=== PATIENT | male | born 1950 | race Caucasian/White ===

== ENCOUNTER → 2020-01-02 09:14 | Outpatient (CLI) | payer MEDICARE, SELFPAY ==
--- NOTE | ~2020-01-02 | MR_ITS ---
EXAMINATION: MR cervical spine wo con DATE: 01/02/2020 10:09 INDICATION: Cervical spinal fusion. Neck discomfort. Bilateral hand tingling. TECHNIQUE: Magnetic resonance imaging (MRI) of the cervical spine was performed without intravenous c ontrast. Sequences included sagittal T2-weighted FSE, sagittal STIR FSE, sagittal T1-weighted FSE, ax ial MERGE, and axial T2-weighted FSE. COMPARISON: Cervical spine MRI 10/12/2015 FINDINGS: Bone alignment is normal. Vertebral body heights are normal. There are changes of anterior fusion procedure from C4 to C6 with interbody devices and anterior plate and screws. There is mildly decreased disc height at C3-C4 and moderately decreased disc height at C6-C7. The spinal cord signal intensity is normal. The following disc levels are specifically discussed: C2-C3: The disc does not extend beyond the endplate margin. There is no uncovertebral joint osteoarth ritis. There is mild right and severe left facet joint osteoarthritis. There is mild left neural fora rg stenosis. There is no central canal stenosis. C3-C4: The disc is bulging. There is mild right and moderate left uncovertebral joint osteoarthritis. There is mild bilateral facet joint osteoarthritis. There is mild bilateral neural foraminal stenosi s. There is mild central canal stenosis. C4-C5: There is mild bilateral uncovertebral joint hypertrophy. There is no facet joint osteoarthriti s. There is mild bilateral neural foraminal stenosis. There is mild central canal stenosis. C5-C6: There is moderate bilateral uncovertebral joint hypertrophy. There is mild bilateral facet constance nt osteoarthritis. There is mild right and moderate left neural foraminal stenosis. There is no centr al canal stenosis. C6-C7: The disc is bulging. There is moderate right and severe left uncovertebral joint osteoarthriti s. There is mild bilateral facet joint osteoarthritis. There is mild bilateral neural foraminal steno sis. There is mild central canal stenosis. C7-T1: There is a central protrusion. There is no uncovertebral joint osteoarthritis. There is mild b ilateral facet joint osteoarthritis. There is no neural foraminal stenosis. There is no central canal stenosis. IMPRESSION: 1. Moderate cervical spondylosis. 2. Anterior fusion procedure from C4 to C6, new from 10/12/2015. Reviewed, dictated and finalized at location A.
== END ==
PROVIDERS: Visit Provider Neurological Surgery
DX: M47.892 Other spondylosis, cervical region (principal); Z98.1 Arthrodesis status
CPT/HCPCS: 72141

== ENCOUNTER → 2020-01-15 09:00 | Outpatient (CLI) | payer MEDICARE, SELFPAY ==
--- NOTE | ~2020-01-15 | MR_ITS ---
EXAMINATION: MR lumbar spine wo con DATE: 01/15/2020 09:56 INDICATION: Neurogenic claudication due to lumbar spinal stenosis. Low back pain. TECHNIQUE: Magnetic resonance imaging (MRI) of the lumbar spine was performed without intravenous con trast. Sequences included sagittal T2-weighted FSE, sagittal T2-weighted FS FSE, sagittal T1-weighted FSE, and axial T2-weighted FSE. COMPARISON: None FINDINGS: There is 6 degrees levocurvature of lumbar spine. There is mild chronic anterior wedging of T12 and L1 vertebral bodies. There are Schmorl's nodes at T10-T11, L1-L2, L2-L3, and L3-L4. Interver tebral disc heights are normal. The distal spinal cord signal intensity is normal. The conus medullar is is at T12-L1. The following disc levels are specifically discussed: L1-L2: The disc does not extend beyond the endplate margin. There is mild bilateral facet joint osteo arthritis. There is no neural foraminal stenosis. There is no central canal stenosis. L2-L3: The disc does not extend beyond the endplate margin. There is mild bilateral facet joint osteo arthritis. There is no neural foraminal stenosis. There is no central canal stenosis. L3-L4: There is a right foraminal protrusion. There is mild bilateral facet joint osteoarthritis. The re is mild bilateral neural foraminal stenosis. There is no central canal stenosis. L4-L5: The disc is bulging. There is moderate bilateral facet joint osteoarthritis. There is moderate bilateral neural foraminal stenosis. There is mild central canal stenosis. L5-S1: The disc is bulging and has an annular fissure. There is mild bilateral facet joint osteoarthr itis. There is mild bilateral neural foraminal stenosis. There is mild central canal stenosis. IMPRESSION: 1. Moderate spondylosis at L4-L5 and mild spondylosis at other levels. Reviewed, dictated and finalized at location A.
== END | disposition home or self-care (01) ==
PROVIDERS: Visit Provider Neurological Surgery
DX: M48.062 Spinal stenosis, lumbar region with neurogenic claudication (principal); M47.896 Other spondylosis, lumbar region
CPT/HCPCS: 72148

== ENCOUNTER → 2020-05-20 12:56 | Outpatient (CLI) | payer MEDICARE, SELFPAY ==
--- NOTE | ~2020-05-20 | MR_ITS ---
EXAMINATION: MR lumbar spine wo [facility] EXAM DATE: 05/20/2020 13:57 INDICATION: Spinal stenosis chronic low back pain, left hip/leg pain x4-6 yrs, no trauma. TECHNIQUE: Multi-sequential, multiplanar MR images of the lumbar spine were obtained without contrast . Sagittal T1, T2, T2 fat saturation images. Axial T2 weighted images. Comparison is made to prior examination from 01/15/2020. FINDINGS: There is mild disc disease at all lumbar levels. The conus medullaris terminates at the L1 level and has normal signal intensity and morphology. There is 2-3 mm retrolisthesis L5 on S1. The v ertebral bodies are otherwise aligned. There are no suspicious marrow signal abnormalities. Paraspina l soft tissue is unremarkable. Level by level evaluation: T11-12: Disc does not extend beyond the endplate margin. Facet arthropathy: Moderate. Neural foraminal stenosis: No stenosis. Central canal stenosis: No stenosis. T12-L1: Disc does not extend beyond the endplate margin. Facet arthropathy: Mild to moderate. Neural foraminal stenosis: No stenosis. Central canal stenosis: No stenosis. L1-L2: There is a mild diffuse disc bulge. Facet arthropathy: Moderate. Neural foraminal stenosis: No stenosis. Central canal stenosis: No stenosis. L2-L3: There is a mild diffuse disc bulge. Facet arthropathy: Moderate. Neural foraminal stenosis: Mild bilateral. Central canal stenosis: Mild. L3-L4: There is a mild diffuse disc bulge. Facet arthropathy: Mild to moderate. Neural foraminal stenosis: Mild bilateral. Central canal stenosis: Mild. L4-L5: There is a mild to moderate diffuse disc bulge. Facet arthropathy: Severe. Neural foraminal stenosis: Moderate bilateral. Central canal stenosis: Mild to moderate. L5-S1: There is a mild diffuse disc bulge. Facet arthropathy: Mild. Neural foraminal stenosis: Mild to moderate. Central canal stenosis: No stenosis. There is no significant interval change. IMPRESSION: 1. L4-5 severe facet arthropathy, moderate bilateral neural foraminal stenosis. 2. Otherwise overall mild to moderate lumbar spondylosis. Reviewed, dictated and finalized at location A. KER MECHANIC IMPRESSION: 1. L4-5 severe facet arthropathy, moderate bilateral neural foraminal stenosis . 2. Otherwise overall mild to moderate lumbar spondylosis.
== END ==
PROVIDERS: PCP Internal Medicine; Visit Provider Neurological Surgery
DX: M48.062 Spinal stenosis, lumbar region with neurogenic claudication (principal); M47.896 Other spondylosis, lumbar region
CPT/HCPCS: 72148

== ENCOUNTER → 2020-05-20 12:58 | Outpatient (CLI) | payer MEDICARE, SELFPAY ==
--- NOTE | ~2020-05-20 | XR_ITS ---
EXAMINATION: XR hip LT min 2V DATE: 05/20/2020 14:42 INDICATION: Left hip pain. TECHNIQUE: 2 views of left hip were obtained. COMPARISON: None. FINDINGS: Bone alignment is normal. No fracture. There is mild left hip osteoarthritis. IMPRESSION: 1. Mild left hip osteoarthritis. Reviewed, dictated and finalized at location A. EL LATHE OPERATOR
== END ==
PROVIDERS: PCP Internal Medicine; Visit Provider Internal Medicine
DX: M16.12 Unilateral primary osteoarthritis, left hip (principal)
CPT/HCPCS: 73502

== ENCOUNTER → 2021-08-18 09:14 | Outpatient (CLI) | payer MEDICARE, SELFPAY ==
--- NOTE | ~2021-08-18 | CT_ITS ---
EXAMINATION: CTA neck EXAM DATE: 08/18/2021 10:19 INDICATION: Vertebrobasilar TIA, dizziness. TECHNIQUE: Spiral CTA of the carotid arteries was performed with intravenous injection 100cc of Omnip aque 350. Axial, coronal, sagittal reformatted images reviewed. Additional reformatted images creat ed on dedicated 3-D workstation. NASCET comparable standard used to assess the degree of arterial st enosis. The dose-length product (DLP) for this examination was 743.67 mGy-cm. The exposure was tail ored according to patient size (auto mA exposure control), and iterative reconstruction (ASIR) was us ed as additional dose reduction technique. Comparison is made to prior examination from 05/31/2019. FINDINGS: The vertebral arteries are codominant. There is no vertebral basilar dissection or fibromus cular dysplasia. There is 20% stenosis of the right carotid bulb and 0% stenosis of the left carotid bulb. Mild bilateral carotid siphon arterial sclerosis without stenosis. Jugular veins are patent. No cervical lymphadenopathy. Parotid, submandibular, thyroid gland is unremarkable. Lung apices unremar kable. Cervical fusion C4-6. Moderate disc disease at C6-7. Left cataract surgery. IMPRESSION: Right carotid bulb 20% stenosis, left carotid bulb 0% stenosis. Reviewed, dictated and finalized at location B. AL SERVICE WAITER
[2021-08-18 09:34] LABS: Estimated Glomerular Filt Rate 40
== END ==
PROVIDERS: Visit Provider Internal Medicine
DX: G45.9 Transient cerebral ischemic attack, unspecified (principal)
CPT/HCPCS: 70498; Q9967

== ENCOUNTER 2021-11-18 07:35 | Outpatient (CLI) | payer MEDICARE, SELFPAY | END 2021-11-18 07:36 | disposition home or self-care (01) | LOC: ANHAUDIO 07:37 | PROVIDERS: PCP Internal Medicine; Visit Provider Otolaryngology | DX: R42 Dizziness and giddiness (principal); H90.3 Sensorineural hearing loss, bilateral | CPT/HCPCS: 92537; 92540; 92557; 92567 ==

== ENCOUNTER → 2022-12-01 13:18 | Outpatient (CLI) | payer MEDICARE, SELFPAY ==
--- NOTE | ~2022-12-01 | US_ITS ---
US renal BI 12/01/2022 13:40 Procedure: Realtime transabdominal ultrasound of the kidneys and bladder. Indication: Elevated serum creatinine Comparison: CT dated 04/12/2018 Findings: Renal echotexture is normal bilaterally without hydronephrosis, contour deforming mass or r enal calculus. There are small bilateral renal cysts measuring 1 cm on the right and 9 mm on the left . The right kidney measures 12.5 cm and left kidney measures 12.7 cm. Bladder within normal limits. Impression: 1: Small bilateral renal cysts. Reviewed, dictated and finalized at location L. Impression: 1: Small bilateral renal cysts.
== END ==
PROVIDERS: PCP Internal Medicine; Visit Provider Internal Medicine
DX: R79.89 Other specified abnormal findings of blood chemistry (principal); N28.1 Cyst of kidney, acquired
CPT/HCPCS: 76775

== ENCOUNTER → 2023-06-04 10:08 | Outpatient (CLI) | payer MEDICARE, SELFPAY ==
--- NOTE | ~2023-06-04 | MR_ITS ---
EXAMINATION: MR lumbar spine wo/w con DATE: 06/04/2023 10:59 INDICATION: Low back pain. Left leg pain. TECHNIQUE: Magnetic resonance imaging (MRI) of the lumbar spine was performed without and with 20 mL MultiHance intravenous contrast. COMPARISON: Lumbar spine MRI 05/20/2020 FINDINGS: There is 4 degrees levocurvature of lumbar spine. There is 7 mm anterolisthesis of L4 on L5 . There are changes of anterior and posterior fusion procedures at L4-L5 with interbody devices and p edicle screws. There is mild chronic anterior wedging of T12 and L1 vertebral bodies. The distal spin al cord signal intensity is normal. The conus medullaris is at L1. The following disc levels are spec ifically discussed: L1-L2: The disc does not extend beyond the endplate margin. There is severe right and moderate left f acet joint osteoarthritis. There is no neural foraminal stenosis. There is no central canal stenosis. L2-L3: The disc is bulging. There is moderate bilateral facet joint osteoarthritis. There is mild raheem ateral neural foraminal stenosis. There is no central canal stenosis. L3-L4: There is a right foraminal protrusion. There is severe right and moderate left facet joint ost eoarthritis. There is mild bilateral neural foraminal stenosis. There is no central canal stenosis. L4-L5: There is a nonenhancing left foraminal extrusion. There is enhancing granulation tissue in lef t neural foramen. There is no facet joint hypertrophy. There is moderate left neural foraminal stenos is. There is no central canal stenosis. L5-S1: The disc is bulging and has an annular fissure. There is moderate right and mild left facet selena int osteoarthritis. There is mild bilateral neural foraminal stenosis. There is mild central canal st enosis. IMPRESSION: 1. Anterior and posterior fusion procedures at L4-L5 with extrusion in left neural foramen with moder ate left neural foraminal stenosis. 2. Mild spondylosis at other levels. Reviewed, dictated and finalized at location A. ER SETTER ELECTRON BEAM MACHINE IMPRESSION: 1. Anterior and posterior fusion procedures at L4-L5 with extrusion in left claudine ral foramen with moderate left neural foraminal stenosis. 2. Mild spondylosis at other levels.
== END ==
PROVIDERS: PCP Internal Medicine; Visit Provider Neurological Surgery
DX: Z98.1 Arthrodesis status (principal); M43.16 Spondylolisthesis, lumbar region; M47.896 Other spondylosis, lumbar region
CPT/HCPCS: 72158; A9577

== ENCOUNTER 2024-06-12 13:27 | Outpatient (CLI) | payer MEDICARE, SELFPAY ==
--- NOTE | ~2024-06-12 | XR_ITS ---
3 VIEWS LUMBAR SPINE Ordering provider: Pawel Perez, History: . Arthrodesis status . Comparison: None. FINDINGS: VERTEBRAL BODIES:Postoperative changes at the level of L4-L5. Minimal anterolisthesis at the level of L4-L5. No visible fracture or subluxation. DISK SPACES: Disc spacer at the level of L4-L5. Narrowing of the disc L1-L2, L2-L3 and L5-S1. SOFT TISSUES: Atherosclerotic changes. IMPRESSION: No acute osseous abnormality lumbar spine. Multilevel degenerative disc disease. Anterolisthesis at the level of L4-5. Reviewed, dictated and finalized at location A. MACHINE OPERATOR
== END 2024-06-12 13:28 | disposition home or self-care (01) ==
LOC: MICIMG 13:31
PROVIDERS: PCP Internal Medicine; Visit Provider Neurological Surgery
DX: M51.369 Other intervertebral disc degeneration, lumbar region without mention of lumbar back pain or lower extremity pain (principal); M51.379 Other intervertebral disc degeneration, lumbosacral region without mention of lumbar back pain or lower extremity pain; M43.16 Spondylolisthesis, lumbar region; Z98.1 Arthrodesis status
CPT/HCPCS: 72100